=== PATIENT | male | born 1970 ===

== ENCOUNTER 2016-11-03 05:58 | Observation (INO) | payer OTHER ==
[2016-11-03] MEDS ORDERED: Ondansetron INJ* 2 MG/ML VIAL IV PRN ×2 (08:38→14:11)
[2016-11-03] MEDS ORDERED: D5W 1/2 NS KCl 20 Meq 1000 ML* 1,000 ML IV SCH (09:00)
--- NOTE | 2016-11-03 12:23 | PN ---
Progress Note - Progress Note Note: PREOP NOTE (SEE DICATED H&P) 46 yo M known to me from a prior LAGB surgery, lost to f/u. He presented to [place] [facility] and was transferred to [facility] with RUQ abd pain associated with back pain going on a couple of days with some associated nausea no vomiting, fever, or chills. He has had normal BMs and been passing flatus. He had a CT at [place] which demonstrated a proximal SBO with possible intussusception. PE: Vital Signs Temp 97.5 F 11/03/16 11:28 Pulse 55 11/03/16 11:28 Resp 16 11/03/16 11:28 BP 134/81 11/03/16 11:28 Pulse Ox 98 11/03/16 11:28 NAD lying in bed Abd: obese, well healed scars, soft. Tenderness to deep palpation in R and L UQs. +BS. No peritoneal sx. WBCs nl CT images reviewed, findings as above and LAGB in good position. A/P: RUQ abdominal pain and episodes of nausea associated with CT scan showing jejunal intussusception. I discussed the findings with the patient. I explained the concern for possible SB tumor as a lead point for the intussusception and I have recommended we proceed to the OR for diagnostic laparoscopy with possible small bowel resection depending on the findings at the time of surgery. I explained the nature of the procedure, indications, risks, benefits, alternatives, and option of no treatment. Risks explained, including, not limited to, bleeding, infection, pain, scarring, blood clots, pneumonia, visceral injury, N/V, and the risks of GETA. All his questions were answered. He states understanding and agrees to proceed.
[2016-11-03] MEDS ORDERED: Bupivacaine 0.5% W/EPI SDV* 30 ML VIAL ONE (12:56)
--- NOTE | 2016-11-03 13:04 | CONS ---
SURGICAL CONSULTATION DATE OF CONSULT: 11/03/2016. PATIENT OF: Dr. Juvencio Moise. REASON FOR CONSULTATION: Abdominal pain and suspicion for intussusception. HISTORY OF PRESENT ILLNESS: Mr. Cabral is a pleasant 46-year-old gentleman who presented to [facility] last night with complaints of a two day history of worsening epigastric and right upper quadrant abdominal pain. The patient notes that his pain was dull and more of a pressure sensation with intermittent nature, but has gotten progressively worse until last night. He noticed more sharper cramping and associated nausea, but denies any vomiting or recent changes in bowel habits. He rated it as a 3 to 5/10 pain with occasional worsening crampy episodes. He also does not associated lower back pain that might be related to his symptoms. He denies any nausea, vomiting, or any changes in bowel habits. He is a patient of the surgical practice that had laparoscopic gastric banding placed eight years ago. He had been doing well initially with the lap band for the first couple of years, but he has not been followed up with our practice since then. He had laboratory work-up and a CT scan of the abdomen and pelvis last night at [facility] that revealed questionable small bowel obstruction and evidence of intussusception for which the patient was sent to [facility] for further evaluation and possible surgery. I saw the patient this morning and he was in his room with his parents. He still complained of occasional crampy right upper quadrant abdominal pain, but denies any nausea or vomiting at this time. PAST MEDICAL HISTORY: Significant for morbid obesity for which he had lap band placement in 2008. PAST SURGICAL HISTORY: As mentioned above lap band placement eight years ago. HOME MEDICATIONS: He has no home medication. ALLERGIES: He is ALLERGIC TO PENICILLIN THAT CAUSES RASH. FAMILY HISTORY: Noncontributory. SOCIAL HISTORY: The patient is a nonsmoker who consumes alcohol occasionally and caffeine intake is minimal. REVIEW OF SYSTEMS: See HPI, otherwise negative. He denies any headache, dizziness, blurred vision, or double vision. No cough, dyspnea, or shortness of breath. No chest pain, palpitations, or syncope. He admits to occasional epigastric and right upper quadrant crampy pain, but denies any nausea, vomiting , or recent changes in bowel habits. No dysuria, hematuria or urinary frequency. PHYSICAL EXAM: General: He is a pleasant, obese gentleman. He appears comfortable and in no acute distress or discomfort at the time of consultation. Vital signs: Most recently, temperature 97.5 orally, pulse 55, respirations 16 , oxygen 98 percent on room air, blood pressure 134/81. HEENT: Sclerae anicteric, PERRLA, EOM's intact. Oropharynx is pink, moist with no exudate. Neck: Supple, trachea midline. No cervical adenopathy, thyromegaly or JVD. Lungs: Clear to auscultation bilaterally. Heart: A regular rate and rhythm. Normal S1 and S2 without rubs, murmurs or gallops. Back: Normal curvature, no CVA tenderness. Abdomen: Obese and round. Abdomen is soft and nondistended. There is mild to moderate right upper quadrant tenderness on deep palpation, but no guarding, rigidity or rebound tenderness. There are no hernias, masses, or hepatosplenomegaly. Extremities: Without cyanosis, clubbing or edema. Neurologic: Grossly intact. Rectal: Deferred at this time. LABORATORY WORK-UP: The patient had a CBC and chemistry at [facility] that revealed a white count of 5000, hemoglobin of 15.2, hematocrit 45.1, platelets 212. His urine was negative. His chemistry revealed a sodium of 138 , potassium 3.8, chloride 103, CO2 24, BUN 16, creatinine 0.7, magnesium 2.1. His LFT's and lipase were essentially within normal limits. ACCESSORY DIAGNOSTIC DATA: CT scan of the abdomen and pelvis revealed evidence of lap banding with a dilated proximal jejunum approximately 4 cm with evidence of partial small bowel obstruction and enteroenteric intussusception in the left abdomen. ASSESSMENT: A 46-year-old gentleman with a two day history of abdominal pain and CT scan findings consistent with a small bowel intussusception. PLAN: Patient was seen and evaluated by myself as well as Dr. Moise. Given his ongoing symptoms and the finding of the CT scan, we discussed with him proceeding with diagnostic laparoscopy with possible laparotomy for further evaluation. The rationale, indications, risks and benefits of surgery were discussed with him today. Risks include, but not limited to infection, bleeding or injury to the adjacent structures. He appears to understand and consented to proceed with surgery this afternoon. We will keep him NPO for now and he will be taken to the operating room later today for further evaluation. ZAC SAINZ [id number]/[facility] #: [id number] SKYLER
[2016-11-03] MEDS ORDERED: fentaNYL* 50 MCG/ML 2 ML VIAL (100 MCG VIAL) ONE (13:11)
[2016-11-03] MEDS ORDERED: Midazolam* 1 MG/ML 2 ML VIAL (2 MG) ONE (13:11)
[2016-11-03] MEDS ORDERED: Famotidine IV* 10 MG/ML 2 ML (20 mg) ONE (13:12)
[2016-11-03] MEDS ORDERED: Dexamethasone IV* 4 MG/ML 1 ML (4 MG) ONE (13:12)
[2016-11-03] MEDS ORDERED: Lidocaine 2% PF * 5 ML VIAL ONE (13:12)
[2016-11-03] MEDS ORDERED: Propofol* 10 MG/ML 20 ML BTL IV PUSH ONE (13:12)
[2016-11-03] MEDS ORDERED: Rocuronium* 10 MG/ML VIAL ONE (13:13)
[2016-11-03] MEDS ORDERED: Succinylcholine* 20 MG/ML 10 ML VIAL ONE (13:13)
--- NOTE | 2016-11-03 13:13 | HP ---
HOSPITAL MEDICINE HISTORY AND PHYSICAL: DATE OF ADMISSION: 11/03/16 PRIMARY CARE PHYSICIAN: Dr. Bautista. ATTENDING PHYSICIAN: Dr. Donald Jorgensen* (dictation provided by Leticia Keenan NP). CHIEF COMPLAINT: Abdominal pain. HISTORY OF PRESENT ILLNESS: Mr. Cabral is a 46-year-old male with a past medical history of gastric band surgery with Dr. Moise in 2008 who presents today to the hospital with concern for abdominal pain. Mr. Cabral states that he developed abdominal pain starting on Monday. The pain is described as tightness and muscle soreness across his upper abdomen. He also had low back pain. On Monday night, he had nausea but no vomiting. He was able to sleep through the night. On Monday, he continued to have significant tightness across his upper abdomen with low back pain. He then developed cramping sensation in his left abdomen. He states that the cramps would come in waves. The pain was very severe and he was taken to the hospital for evaluation at [facility]. He had a CT scan which showed concern for a small bowel obstruction with possible intermittent intussusception around the site of his previous gastric banding. His labs were unremarkable and [facility] was called regarding transport and admission for surgical consultation. The patient states he did have a bowel movement yesterday and that it was normal formed. Today after receiving contrast at [facility] for CT scan, he had a very loose incontinent stool. Mr. Cabral states other than having this issue in the past couple of days, he has been feeling in his health. He has no history of cardiac or pulmonary disease. He states that he has lost 80 to 90 pounds since bypass. PAST MEDICAL HISTORY: 1. Morbid obesity. 2. Gastric banding in 2008. ALLERGIES: PENICILLIN. FAMILY HISTORY: The patient reports his mother and father are still alive. There is a history of diabetes and hypertension in the family. SOCIAL HISTORY: The patient is a nonsmoker, drinks occasionally. There is no report of drug use. He does note state any healthcare proxy. REVIEW OF SYSTEMS: A 14-point review of systems was completed with Mr. Cabral and all those not mentioned above were negative. PHYSICAL EXAMINATION GENERAL: Mr. Cabral is sitting up in the bed. He is in no acute distress. He is calm and cooperative on my examination. VITAL SIGNS: Temperature 97.6, pulse rate 52, respiratory rate 16, O2 saturation 98% on room air, blood pressure 115/72. LUNGS: Clear to auscultation bilaterally with no accessory muscle use and good aeration. HEART: S1, S2. No murmur, gallop and regular. ABDOMEN: The abdomen is soft. There is tenderness in the left upper quadrant. No rebound. Bowel sounds are positive. EXTREMITIES: No cyanosis or edema. NEUROLOGIC: He is alert and oriented x3. He moves all extremities equally. There is no facial asymmetry, focal weakness. Extraocular movements are intact. SKIN: Intact. LABORATORY DATA: Unavailable, will be added in addendum. IMAGING: A report is unavailable, will be added in addendum but did show small bowel obstruction with concern for intermittent intussusception. ASSESSMENT: Mr. Cabral is a 46-year-old male with a past medical history of morbid obesity with gastric banding in 2008 who presents today to the hospital with 2 days of abdominal pain and small bowel obstruction. Plans are as follows. 1. Small bowel obstruction: Dr. Moise and his team has been contacted and they will be providing consultation today. In the meantime, the patient will be NPO except for ice chips. He is encouraged to ambulate frequently. At this point, the patient's pain is greater than 2/10 and he does not need any pain medications. We will have Zofran available p.r.n. 2. DVT prophylaxis with early mobility. 3. Disposition. Surgical floor. TIME SPENT: Approximately 60 minutes was spent on the admission of this patient , more than half the time was spent with the patient at bedside reviewing the events leading up to this hospitalization performing physical examination and reviewing by plan [place] [id number]/[facility] #: [id number] SKYLER
[2016-11-03] MEDS ORDERED: ceFOXitin 2 GM IVPREMIX* 2 GM/50 ML BAG ONE (13:19)
[2016-11-03] MEDS ORDERED: fentaNYL* 50 MCG/ML 2 ML VIAL (100 MCG VIAL) IV PRN (14:11)
[2016-11-03] MEDS ORDERED: PROCHLORPERAZINE INJ 5 MG/ML 2 ML VIAL IV PRN (14:11)
[2016-11-03] MEDS ORDERED: Acetaminophen TAB* 325 MG PO PRN (14:11)
[2016-11-03] MEDS ORDERED: DiMENhydriNATE IV* 50 MG/ML VIAL IV PUSH PRN (14:11)
[2016-11-03] MEDS ORDERED: HYDROmorphone INJ* 1 MG/ML CARPUJECT SYRINGE IV PRN (14:11)
[2016-11-03] MEDS ORDERED: Ondansetron INJ* 2 MG/ML VIAL ONE (14:29)
[2016-11-03] MEDS ORDERED: Ketorolac INJ* 30 MG/ML 1 ML VIAL ONE (14:29)
[2016-11-03] MEDS ORDERED: Neostigmine Methylsulfate* 2 MG/2 ML SYRINGE ONE (14:50)
[2016-11-03] MEDS ORDERED: Acetaminophen TAB* 325 MG ONE (15:41)
[2016-11-03 15:45] VITALS: BP 136/92
--- NOTE | 2016-11-04 02:43 | OP ---
DATE OF OPERATION: 11/03/16 - ROOM #340 DATE OF : 72 SURGEON: Juvencio Moise MD CYLINDER SANDER OPERATOR: ZAC Crespo ANESTHESIOLOGIST: Nancy Frank MD ANESTHESIA: General endotracheal. PRE-OP DIAGNOSIS: Small bowel obstruction with small bowel intussusception. POST-OP DIAGNOSIS: Abdominal pain, no evidence of obstruction. OPERATIVE PROCEDURE: Diagnostic laparoscopy. ESTIMATED BLOOD LOSS: Minimal. IV FLUIDS: Crystalloids. SPECIMENS: None. DRAINS: None. COMPLICATIONS: None. COUNTS: The instrument, needle, and sponge counts were correct. FINDINGS: Normal-appearing liver with normal-appearing stomach with laparoscopic adjustable gastric band in place. Evidence of small bowel dilation , but no evidence of small bowel obstruction. DESCRIPTION OF PROCEDURE: The patient was brought to the operating room, placed in table, supine. Sequential compression devices were placed in both lower extremities and general anesthesia was administered. He received appropriate intravenous antibiotics and a time-out was performed. Local anesthetic was infiltrated at the skin and soft tissue prior to making each incision. Entry to the abdomen is through a right upper quadrant incision , accommodating a 5 mm optical trocar. After accessing the peritoneal cavity, carbon dioxide was insufflated to a pressure of 15 mmHg. A 5 mmHg 30-degree laparoscope was introduced and under direct visualization, 5 mm trocars were placed in the supraumbilical region and also the right lower quadrant. The inspection of the liver and gallbladder revealed them to be grossly normal in appearance and no evidence of inflammation. Transverse colon appeared normal. Omentum was retracted superiorly and the Ligament of Treitz was identified. There was some dilation of the small bowel, which was evidenced, however. Running the small bowel from the Ligament of Treitz distally centimeter by centimeter failed to reveal any evidence of mass, intussusception , or other mechanical problem. The bowel was run all the way down to the ileocecal valve and bowel contents were able to be noted all the way through the small bowel. The cecum and appendix appeared normal. There was a redundant sigmoid colon, which otherwise appeared normal. At this point, the operation was concluded. The ports were removed under direct visualization and carbon dioxide was released. Skin incisions were closed with 4-0 Monocryl in subcuticular fashion. Steri-Strips were applied. The patient tolerated the procedure well, was extubated uneventfully, and was transferred to the recovery room in a stable condition. CC: Oscar Bautista MD* [id number]/[facility] #: [id number] SKYLER
--- NOTE | 2016-11-05 04:46 | DS ---
DISCHARGE SUMMARY: DATE OF ADMISSION: 11/03/16 DATE OF DISCHARGE: 11/03/16 PATIENT OF: uJvencio Moise MD ADMISSION DIAGNOSES: Abdominal pain, small bowel obstruction, and concern for possible intussuscept ion. DISCHARGE DIAGNOSES: Abdominal pain, small bowel obstruction, and concern for possible intussuscept ion. ADMITTING PHYSICIAN: Juvencio Moise MD CONSULTATION: None. PROCEDURE PERFORMED: Diagnostic laparoscopy with running of the bowel on 11/03/16. BRIEF MEDICAL HISTORY: Mr. Cabral is a pleasant 46-year-old gentleman who presented to [facility] room the night before his admission with complaints of 2-day history of worsening epigastric and right upper quadrant abdominal pain. He notes that his pain was dull and more of a pressure sens ation, intermittent in nature, but has gotten progressively worse until last night. He noticed some sharp episodes of cramping with associated nausea, but denies any vomiting. His pain got better ev entually, but he went to the emergency room for further evaluation. He had a CT scan at [facility] last night that revealed some possible small bowel obstruction and concern for intussusception on t he left part of the bowel. Given his ongoing symptoms and the findings of the CT scan, the patient was transferred to [facility] for observation overnight and to discuss possible surgery. HOSPITAL COURSE: The patient was admitted overnight and was seen next morning by Dr. Moise himsel f. The patient was still complaining of intermittent epigastric pain with no associated symptoms fo r which we discussed with him the findings of the CT scan and decided to take him to the operating r oom for a diagnostic laparoscopy, possible bowel resection. After discussion with him the rationale , indications, risks, and benefits of the surgery; the patient consented to go forth. He was taken t o the operating room later this afternoon and he was found to have minimal adhesions on the left tuan e, but there was no evidence of any small bowel obstruction or intussusception at this point. The b owel was run twice and there was no evidence of any tumor, mass, or any other abnormal findings. Af ter recovery, the patient was doing well, tolerating clear liquids, and his pain was well under cont rol. He discharged directly from PACU to home in a stable condition. DISCHARGE MEDICATIONS: Include Percocet as needed for pain. PROBLEM LIST: Abdominal pain, CT scan finding with suspicion for SBO and intussusception, status po st diagnostic laparoscopy on 11/03/16. ZAC SAINZ [id number]/[facility] #: [id number]
== END 2016-11-03 16:45 | disposition home or self-care (01) ==
LOC: INTOOBSV 08:29 → SSU 08:29
PROVIDERS: ADMIT Hospitalist; ATTEND Surgery
PROC: 0WJG4ZZ Inspection of Peritoneal Cavity, Percutaneous Endoscopic Approach (ICD-10-PCS; principal; 2016-11-03 13:00)
DX: K56.60 Unspecified intestinal obstruction (principal); R10.13 Epigastric pain; R10.11 Right upper quadrant pain; I51.7 Cardiomegaly; E66.01 Morbid (severe) obesity due to excess calories; Z98.84 Bariatric surgery status; Z88.0 Allergy status to penicillin
CPT/HCPCS: 93005; A9270-GY; G0378; J0330; J0694; J1100; J1885; J2250; J2405; J2704; J3010